=== PATIENT | female | born 1995 | race Caucasian/White ===

== ENCOUNTER 2017-03-11 13:06 | Inpatient (IN) | payer OTHER ==
[~2017-03-11] VITALS: Ht 170.2 cm; Wt 74.9 kg
--- NOTE | ~2017-03-11 | INDIVTXPLN ---
"PATIENT: ADELIA SHEIKH | | [facility] UNIT #: [id number] | [address] AGE/SEX: 21 F : [birth year] | [address] | [place] [address] ADMIT/REG DATE: 03/11/17 | ROOM: [facility] LOC: ADTC | ADTC | Individualized Treatment Plan Date: Problem Statement/Issue Identified: Client has learned to deny or stuff feelings; needs to learn to identify and process feelings in a clean/sober manner. Goal: Client will learn to identify and express feelings in a healthy, clean/sober manner. Objectives/Activities to achieve goal: 1. Client is to complete the Feelings packet and process it with counselor. Due Date:03/26/17 Complete: Incomplete: 2. Client is to write the following people a feelings letter, each separately, and process them with counselor and in family group, if able: Her father, mother, step father and step brother. Due Date:04/01/17 Complete: Incomplete: Client signature Date Counselor signature Date Outcome/Measurement of Progress Towards Goal: Counselor's signature Date "
--- NOTE | ~2017-03-11 | INDIVTXPLN ---
"PATIENT: ADELIA SHEIKH | | [facility] UNIT #: [id number] | [address] AGE/SEX: 21 F : [birth year] | [address] | [place] [address] ADMIT/REG DATE: 03/11/17 | ROOM: [facility] LOC: ADTC | ADTC | Individualized Treatment Plan Date: 04/02/17 Problem Statement/Issue Identified: Client needs to identify relapse warning signs and develop a plan to deal with them as they arise. Goal: Client will learn how to maintain her recovery. Objectives/Activities to achieve goal: 1. Client is to complete the Recovery Maintenance packet and process it with counselor. Due Date:04/04/17 Complete: Incomplete: Client signature Date Counselor signature Date Outcome/Measurement of Progress Towards Goal: Counselor's signature Date "
--- NOTE | ~2017-03-11 | CLPRLASSUM ---
PATIENT: ADELIA SHEIKH | | [facility] UNIT #: [id number] | [address] AGE/SEX: 21 F : [birth year] | [address] | [place] [address] ADMIT/REG DATE: 03/11/17 | ROOM: [facility] LOC: ADTC | ADTC | Client Problem List/Assessment Summary Date: 03/12/17 Problems identified by the client: Client decided she needs to get her life back together, so cam eto treatment on her own without any outside influences. Problems identified by significant others: Same Client's Strengths: Client identiified her strengths as: She has a big heart, she sees the best in people, has an imagination and can be very positive. Problem List: Code: T Client continues to use alcohol &/or drugs despite ongoing negative consequences. Code: T Client does not "reach-out to others for help" and instead resumes using alcohol &/or drugs. Code: T Client has learned to deny or stuff feelings; needs to learn to identify and process feelings with safe people to acquire the necessary skills to maintain custodial sobriety. Code: T Client needs to identify relapse warning signs and develop a plan to deal with them as they arise. Code: T Client needs to identify ways to improve self esteem to help maintain salvage determiner sobriety from all mood altering substances. Code Melchor: T: to be addressed during course of treatment O: problem noted, expected to resolve itself with abstinence--specific tx plan not required R: problem noted, will be referred upon discharge PRIMARY COUNSELOR: MIGUEL Saeed
--- NOTE | ~2017-03-11 | TXPLANREV ---
"PATIENT: ADELIA SHEIKH | | [facility] UNIT #: [id number] | [address] AGE/SEX: 21 F : [birth year] | [address] | [place] [address] ADMIT/REG DATE: 03/11/17 | ROOM: [facility] LOC: ADTC | ADTC | Treatment Plan/Staffing Review Date: 03/26/17 Treatment plan was reviewed and determined appropriate as written: Yes Treatment plan was reviewed and the following changes/addition/deletions are necessary: Client is to continue working on treatment plan assignments. She is working on feelings letters, and other self-worth papers/packets. She will begin working on relapse prevention soon. 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 Other pertinent issues discussed during this staffing review include: None Staff Present: Anay Dean PRIMARY COUNSELOR: Deepa See Client Signature Counselor Signature Date Time "
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
--- NOTE | ~2017-03-11 | TXPLANREV ---
"PATIENT: ADELIA SHEIKH | | [facility] UNIT #: [id number] | [address] AGE/SEX: 21 F : [birth year] | [address] | [place] [address] ADMIT/REG DATE: 03/11/17 | ROOM: [facility] LOC: ADTC | ADTC | Treatment Plan/Staffing Review Date: 04/02/17 Treatment plan was reviewed and determined appropriate as written: Yes Treatment plan was reviewed and the following changes/addition/deletions are necessary: Client is to continue working on treatment plan assignments. She is working on self-worth, and will begin working on recovery maintenance. 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 Other pertinent issues discussed during this staffing review include: None Staff Present: Chelsie Dean PRIMARY COUNSELOR: MIGUEL Saeed Client Signature Counselor Signature Date Time "
--- NOTE | ~2017-03-11 | INDIVTXPLN ---
"PATIENT: ADELIA SHEIKH | | [facility] UNIT #: [id number] | [address] AGE/SEX: 21 F : [birth year] | [address] | [place] [address] ADMIT/REG DATE: 03/11/17 | ROOM: [facility] LOC: ADTC | ADTC | Individualized Treatment Plan Date: 03/20/17 Problem Statement/Issue Identified: Client needs to identify ways to improve self esteem to help maintain care home sobriety from all mood altering substances. Goal: Client will learn how to get to know herself, which in turn, will help her gain higher self-worth. Objectives/Activities to achieve goal: 1. Client is to complete the About Me, Finish the Sentences and I'm Worthwhile, because.... papers, and process them with counselor. Due Date:03/28/17 Complete: Incomplete: 2. Client is to complete the Self-Sharp packet and process it with counselor. Due Date:03/28/17 Complete: Incomplete: 3. Client is to work on 2 pages a day, only, out of the Quiet Moments packet and process them with counselor. Due Date:Ongoing Complete: Incomplete: Client signature Date Counselor signature Date Outcome/Measurement of Progress Towards Goal: Counselor's signature Date "
--- NOTE | ~2017-03-11 | INDIVTXPLN ---
"PATIENT: ADELIA SHEIKH | | [facility] UNIT #: [id number] | [address] AGE/SEX: 21 F : [birth year] | [address] | [place] [address] ADMIT/REG DATE: 03/11/17 | [facility] | ADTC | Individualized Treatment Plan Date: 03/12/17 Problem Statement/Issue Identified: Client continues to use alcohol &/or drugs despite ongoing negative consequences, and she did not reach out to anyone prior to drinking. Goal: Client will learn to identify negative consequences of her addiction, attend AA/NA meetings, and meet women in recovery. Objectives/Activities to achieve goal: 1. Client is to complete the How to Get Started packet, process it with counselor and selected pages in group. Due Date:03/15/17 Complete: Incomplete: 2. Client is to complete Step 1, process it with counselor and selected pages in group. Due Date:03/20/17 Complete: Incomplete: 3. Client is to attend AA/NA meetings, ask for and get at least 5 names and numbers of women in recovery and share that list with counselor. Due Date:Ongoing Complete: Incomplete: Client signature Date Counselor signature Date Outcome/Measurement of Progress Towards Goal: Counselor's signature Date "
--- NOTE | ~2017-03-11 | TXPLANREV ---
"PATIENT: ADELIA SHEIKH | | [facility] UNIT #: [id number] | [address] AGE/SEX: 21 F : [birth year] | [address] | [place] [address] ADMIT/REG DATE: 03/11/17 | [facility]TC | Treatment Plan/Staffing Review Date: 03/19/17 Treatment plan was reviewed and determined appropriate as written: Yes Treatment plan was reviewed and the following changes/addition/deletions are necessary: Client is to continue working on treatment plan assignments. She is finishing up with Step 1 and will begin working on feelings letters. Discharge plans were reviewed and determined appropriate as previously documented: No Discharge plans were reviewed and determined to be as follows: Client will benefit from going to sober living, however, nothing has been decided, other than to attend 3-5 AA//NA meetings per week, and to get and call a sponsor on a regular basis. Other pertinent issues discussed during this staffing review include: None at this time. Staff Present: Chelsie Dean PRIMARY COUNSELOR: MIGUEL Saeed Client Signature Counselor Signature Date Time "
--- NOTE | 2017-03-11 15:04 | NUR ---
ADMISSION NOTE Rights/Responsibilities: Copy given and explained to client. Signed and accepted by client. Client oriented to physical lay out of the ADTC unit, given Big Book and admission packet. A Leno was assigned. Muriel Client is a 21yr old single female. Brought to tx by [facility] staff where she has been for the past 5 days. Lives in [place], [place]. DOC Alcohol, last used 03/04/17, 750L daily. Allergies: Sulfa, Amoxil, Nurse has her meds. Brother will participate in family tx. Was searched no contraband found. Initial paperwork given and guidelines gone over. Doctor has been notified.
--- NOTE | 2017-03-11 22:45 | NUR ---
Tech note: Client went to an onsite NA meeting. She was checked into her room, seen by the DR and gave her first intro. She was upset about not being able to keep her blanket, cried some in the room with tech. SE; Entering treatment
--- NOTE | 2017-03-12 04:20 | NUR ---
Bed note: Client was in bed with eyes closed and no distress at all bed checks, had door locked at first bed check and that woke client up
--- NOTE | 2017-03-12 12:44 | NUR ---
A.M. 1.5 hr res group/ratio 1:10/ Group heard a getting started and a goodbye letter to addiction. Discussed having resentment towards self, how kids are forgiving, and we oriented 3 new group members. This client was oriented to her first group. She related and said her parents were addicted and only time dad calls is when he is messed up. She said she would welcome him back if he got clean.
--- NOTE | 2017-03-12 13:30 | NUR ---
Tech Note: Client participated in light stretching for morning exercise and went for an outdoor walk in the afternoon. Client stated that she is working on, "How to Get Started in Treatment."
--- NOTE | 2017-03-12 13:39 | NUR ---
Education One Hour: Client heard a presentation on Sexually Transmitted Disease.
--- NOTE | 2017-03-12 16:06 | NUR ---
Relapse Prevention Education, 1.0 hours, Client attended and actively participated in relapse prevention education which focused on a Relapse Prevention Quiz and discussion over the answers.
--- NOTE | 2017-03-12 16:13 | NUR ---
INITIAL SESSION 1 HR: Clt was oriented to tx plans, schedules and what to expect from tx and this counselor. She stated she is actually from [place], but came her to get sober and find a job. Her drug of choice is alcohol, altho she has smoked marijuana. She came from an alcoholic home, so knows no other way. 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 She had been drinking until passing out, then waking up and starting over. She is to work on her initial paperwork.
--- NOTE | 2017-03-12 20:31 | NUR ---
education note: 1 hour lecture by counselor on" what christian are you willing to pay"
--- NOTE | 2017-03-12 23:03 | NUR ---
Tech note: Client attended the Alumni meeting, participated in guided meditation and attended an onsite AA meeting. SE; Meeting with counselor
--- NOTE | 2017-03-13 05:00 | NUR ---
Bed note: Client was in bed with eyes closed and motionless at all bed checks.
--- NOTE | 2017-03-13 09:07 | HP ---
ADMIT: 03/11/2017 RM/LOC: [facility] MR#: [id number] [address] [facility] [address] [place] [id number] ADELIA SHEIKH [address] [place] [id number] History and Physical SEX: F AGE: 21 : 1995 DATE OF SERVICE: 03/11/2017 This is for her admission to the residential care program with [facility]. CHIEF COMPLAINT: Alcohol problem drinking out of control. CLINICAL HISTORY: The patient is a 21-year-old white female, admitted to the residential care program for treatment of her alcohol use disorder. The patient readily admits that she is an alcoholic and recognizes that she needs help to quit and remain sober. The patient notes that she tried to quit on her own and was sober from September of 2016 through November of 2016, but then relapsed and has been drinking again heavily for the last 4 months. She comes to treatment after having spent the past 6 days at detox being admitted to [facility] on 03/05/2017 and transferred to the residential treatment program on 03/11/2017. As noted her drug of choice is alcohol. She first started drinking at age 15. Her drinking escalated when she was 16-1/2 to 17 years of age, and the patient notes that she has been drinking daily for the last 3 years. Typically drinking whiskey or other hard liquor. Drinking at least a minimum of 750 mL of whiskey per day. Drinking to the point that she has blackouts. Drinking to the point that she often times will pass out or fall asleep. She also notes that by mid morning, she usually has to start drinking because she starts to get tremulous and has signs of early alcohol withdrawal. So, she drinks to get rid of the shakes. She notes that she prefers alcohol is her drug of choice, but will occasionally smoke marijuana. Typically, she does not seek out marijuana, but if she has been drinking and pot is there, she will take a couple hits off a bowl. Usually, she will smoke pot at least once a week, but notes that she does not typically smoke pot unless she has been drinking. She denies any other regular drug use. She notes she has experimented with cocaine on 2 occasions, snorting a line once again while intoxicated and was available at parties. Notes, she really did not care that much for cocaine and as noted has only used it twice. She denies any abuse of prescription drugs. She has been on medications for ADD since she was 6 years of age. She notes that she has never abused her ADD medications. She comes to treatment requesting help on a voluntary basis wanting to get sober and try to get her life back on track. She is actually from [place], [place] but has been staying with friends in [place] recently trying to get away from the environment that was leading her to drinking so heavily. PAST MEDICAL HISTORY: Prior hospitalizations, the patient had 2 psychiatric admissions in the last 5 months. She is admitted to a Behavioral Service Unit in [place] after a suicide attempt in November of 2016. She was hospitalized again in December of 2016. Each of these times, she was in the psychiatric facility for 1 week following suicide attempts. She stops taking Prozac and has had no further suicidal ideation. She had been placed on Prozac in September and started having suicidal thoughts after being started on antidepressant medication. She has had no other recent hospitalizations. Her only previous surgical procedure was having her wisdom teeth extracted in 2009. ADMIT: 03/11/2017 RM/LOC: [facility] MR#: [id number] [address] [address] [address] [address] [address] History and Physical SEX: F AGE: 21 : 1995 CURRENT MEDICATIONS: Her medications include: 1. control pill for contraception. 2. She also is on Concerta 54 mg once daily. 3. She takes Atarax 25 mg occasionally as needed for anxiety. ALLERGIES: SHE IS ALLERGIC TO AMOXICILLIN AND SULFA. MEDICAL ILLNESSES: The patient notes history of ADHD, has been on medications for the last 15 years for her ADHD. She notes that she really cannot function without the medication. She has trouble concentrating, unable to stay on task. Has difficulty with reading comprehension and retaining information if she does not take her ADD med. COMPUTER MECHANIC HISTORY: She is a nulligravida. Currently, on the control pill. REVIEW OF SYSTEMS: A 12-point review of systems is otherwise noted to be negative with no significant cardiac, pulmonary, GI, , musculoskeletal, or neurologic problems. The patient has struggled with depression and past suicidal ideation, but denies any suicidal thoughts at this time. I do note that she is a smoker. Typically, smoking less than half a pack a day. SOCIAL HISTORY: She is single. She has currently been staying with friends in [place]. The patient notes she graduated high school and has taken a semester of college. She has no children. Her family lives in [place], and she plans on returning to [place] upon completion of treatment. FAMILY HISTORY: She notes that both of her parents were alcoholics. Her mother has been sober for a number of years. She notes that she has an older brother and a younger sister. Her older brother has also struggled with alcoholism and drug abuse. She notes there is a strong history of alcoholism on both sides of her family in addition to both of her parents. PHYSICAL EXAMINATION: VITAL SIGNS: Temp is 96.7, pulse is 74, respirations 20, blood pressure is 135/86, height 5 feet 7 inches, and weight is 165 pounds. GENERAL: The patient is a 21-year-old, white female, appears her stated age. She is in no acute distress. HEENT: Entirely unremarkable. Nose and throat noninflamed. NECK: Supple. Thyroid not enlarged. No cervical adenopathy. LUNGS: Noted to be clear today. HEART: Regular rhythm without murmur. ABDOMEN: Soft and nontender. No masses. No organomegaly. Bowel sounds normoactive. BREASTS AND PELVIC: Exams not performed EXTREMITIES: Normal to gross exam. No clubbing or cyanosis. No peripheral edema. Full range of motion and mobility in all extremities. NEUROLOGICAL: She is intact with no focal deficit. Balance and gait are normal. Cranial nerves II through XII are grossly intact. ADMIT: 03/11/2017 RM/LOC: [facility] MR#: [id number] [address] [id number] [address] History and Physical SEX: F AGE: 21 : 1995 MENTAL STATUS EXAMINATION: She is pleasant and cooperative. Affect is appropriate. She has no bizarre ideation. No delusions. No hallucinations. She admits to depression and admits to feelings of loneliness, depression, and hopelessness, but denies any suicidal ideas or thoughts at this time. She is oriented x3. She is of average intelligence. Her insight is limited. Judgment is guarded. ASSESSMENT AT THE TIME OF ADMISSION: 1. Alcohol use disorder, severe. 2. Cannabis use disorder, moderate. 3. Attention-deficit hyperactivity disorder. 4. Tobacco use disorder. 5. Major depressive disorder, recurrent. 6. Chemical-induced mood disorder. PLAN: Is to admit the patient to the residential care program with a tentative discharge date of 04/08/2017. We will need to discuss with the staff and program directors regarding whether or not to continue her current stimulant medication for her ADHD while she is in treatment. Scott Brandt MD/ pavan JOB #: [id number] CC: Scott Brandt, Attending Physician NO FAMILY PHYSICIAN, Family Physician
--- NOTE | 2017-03-13 10:43 | NUR ---
Hermilo notes: Client is working on Getting started and mtg with chayito
--- NOTE | 2017-03-13 12:38 | NUR ---
Education note: Client had education by [facility]
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
--- NOTE | 2017-03-13 17:22 | NUR ---
SPIRITUAL EDUCATION 1 HR. Todays topics were orienting newcomers, and taking a look at Pradip George's 5 SECRETS TO SUCCESS which include a look at the miracles of the human body as blessings.
--- NOTE | 2017-03-13 20:59 | NUR ---
education: 1 hour video on unresolved anger and group discussion with counselor
--- NOTE | 2017-03-13 22:16 | NUR ---
Tech note: Client worked on beaded project and attended an onsite NA meeting. SE; NA meeting
--- NOTE | 2017-03-14 04:06 | NUR ---
Bed note: Client was in bed with eyes closed and no distress at all bed checks.
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
--- NOTE | 2017-03-14 10:51 | NUR ---
Tech Note: Client participated in Spiritual Enrichment. Client stated that she is working on Step One.
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
--- NOTE | 2017-03-14 13:41 | NUR ---
Education 1 Hour: Client heard a presentation from a member of the recovery community who shared his experience, strength and hope.
--- NOTE | 2017-03-14 16:19 | NUR ---
step education 1 hr/ Focus was on step 2, handed out some questions they completed on paper and then opened it up for discussion. This client started getting emotional when a peer shared about a cousin who had a problem with a pregnacy and she seemed to know a lot so wonder if she went through similar situation.
--- NOTE | 2017-03-14 23:47 | NUR ---
Tech Note: Client attended Guided Meditation and A.A.Meeting. SE: Speaker
--- NOTE | 2017-03-15 04:25 | NUR ---
Eduction: 1 Hour. Client attended "Unresolved Anger" video & discussion presented by staff.
--- NOTE | 2017-03-15 08:07 | NUR ---
FAMILY CONTACT: The number clt provided for her step brother is not a working number.
--- NOTE | 2017-03-15 11:53 | NUR ---
Group 1.5 Hr Ratio 1:9/Topics today were two getting started packets, forgiveness and dealing with bad childhoods. Client shared her GS packet ad did ok but was quiet after that. Self esteem is a struggle for this client she said.
--- NOTE | 2017-03-15 13:00 | NUR ---
PEER REVIEWS 1.5 HRS: Clt participated in peer review process and was able to give open and honest feedback to those receiving a review.
--- NOTE | 2017-03-15 16:23 | NUR ---
Tech Note: Client participated in group walk for exercise and watched "Recovery Issues Part 3" for afternoon video. Client is working on Step 1.
--- NOTE | 2017-03-15 22:49 | NUR ---
TECH NOTE: Client participated in reading guidelines and watched tv/movies. SE: seeing ducks
--- NOTE | 2017-03-16 04:11 | NUR ---
Bed Note: Clt lay motionless in bed with eyes closed showing no distress at all bed checks.
--- NOTE | 2017-03-16 16:04 | NUR ---
Tech Note: Client attended NA Panel and is working on Step 1. She had a visitor.
--- NOTE | 2017-03-16 20:25 | NUR ---
Tech note: Clt played a game for recreation and attended offsite AA mtg. Watched tv and played cards. SE was seeing brother
--- NOTE | 2017-03-17 04:38 | NUR ---
Bed Note: Clt lay motionless in bed with eyes closed showing no distress at all bed checks.
--- NOTE | 2017-03-17 15:52 | NUR ---
Tech Note: Client participated in Big Book Study. Client stated that she is working on Step One and writing a letter to herself.
--- NOTE | 2017-03-17 22:47 | NUR ---
Tech Note: Clt attended AA panel, played game with male peer and watched tv. SE was nap
--- NOTE | 2017-03-18 04:40 | NUR ---
Bed Note: Clt lay motionless in bed with eyes closed showing no distress at all bed checks.
--- NOTE | 2017-03-18 10:16 | NUR ---
Tech notes: Client is working on Step 1 and Letter to self
--- NOTE | 2017-03-18 12:43 | NUR ---
Group 1.5 hr/10:1 Clients heard peers share packets, this client was attentive.
--- NOTE | 2017-03-18 13:31 | NUR ---
Education: Client attended education by [employer] on Infection prevention.
--- NOTE | 2017-03-18 16:00 | NUR ---
Recovery 101 1 hr/ Clients all were asked to share what they worked on in treatment or past treatments that really helped them and/or their experience with working an AA/NA program of recovery-what went well. This client was attentive. She said it is her first time she wanted treatment and is learning the root of why she needs to drink/use.
--- NOTE | 2017-03-18 18:12 | NUR ---
Education: 1 Hour. Client attended "Adult Children of Alcoholics" lecture presented by staff.
--- NOTE | 2017-03-18 23:33 | NUR ---
tech note: Client played a game for recreation & attended onsite NA meeting. Client was seen sitting with male peer in the NA meeting-they didn't have anyone else sitting very close to them. SE: NA meeting.
--- NOTE | 2017-03-19 04:32 | NUR ---
BED NOTE: Client was in bed, motionless with eyes closed all three bed checks.
--- NOTE | 2017-03-19 11:38 | NUR ---
A.M. 1.5 hr res group/ratio 1:10/ Assignments shared were a how to get started and a letter to self. Discussion focused on resenting self, forgivness, feeling afraid and out of place and believing in self. This client participated and shared her letter to herself and said she knows she needs to learn how to love herself and is working on this.
--- NOTE | 2017-03-19 16:00 | NUR ---
Relapse Prevention, 1.0 hours, Client attended and actively participated in relapse prevention education which focused on internal and external triggers.
--- NOTE | 2017-03-19 16:37 | NUR ---
Tech Note: Client participated in Nutritional Services presentation and is working on Step 1 and Self Bon Homme.
--- NOTE | 2017-03-19 22:42 | NUR ---
Education: 1 hour lecture given by counselor on co-dependency
--- NOTE | 2017-03-19 22:53 | NUR ---
Tech note: clients played catchphrase for rec, participated in guided meditation and attended AA meeting SE:all day
--- NOTE | 2017-03-20 04:37 | NUR ---
bed note: client was in bed with eyes closed and motionless at all bed checks.
--- NOTE | 2017-03-20 09:54 | NUR ---
Tech notes: Client is working on Quiet moments and mtg with chayito
--- NOTE | 2017-03-20 11:30 | NUR ---
GROUP 1.5 HRS. 1:12 Clients participated in orienting new peer to purpose and rules of group. Discussion included healthy coping skills to deal with stress and feelings. Peer processed from his step 1 assignment identifying how he betrayed his values in his addiction. This client offered appropriate feedback. Peer advised that he has noticed this client paying attention to the scars on her wrist and inquired about feelings which she identified as sad. She also shared about relapse being self-sabotage and not believing that she deserves good things.
--- NOTE | 2017-03-20 13:15 | NUR ---
Education note: Client attended educational speaker Wil Calderon
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
--- NOTE | 2017-03-20 18:18 | NUR ---
Education: 1 Hour. Client attended "Boudaries" lecture given by staff.
--- NOTE | 2017-03-20 22:57 | NUR ---
Tech Note: Client played a game for rec, and attended The on unit N.A.Meeting. SE: Co Chairing N.A.Meeting
--- NOTE | 2017-03-21 04:30 | NUR ---
Bed Note: Client was in bed with eyes closed and motionless at all bed checks.
--- NOTE | 2017-03-21 12:46 | NUR ---
Group 1.5 Hr Ratio 1:9/Topics today were a collage, two step ones, a getting startred and feelings letters. Client shared how he could relate to what clients were sharing from assignments and issues. Client also shared her step one and did a good job looking at her lack of self esteem and how she needs to learn to set boundaries.
--- NOTE | 2017-03-21 15:49 | NUR ---
step education 1 hr/ Focus was on step 3 of the 12 steps Made a decision to turn our will and lives over to God. Each person were given questions to answer on paper and then to share and discuss. This client participated.
--- NOTE | 2017-03-21 18:16 | NUR ---
Education 1HR: Clt watched video called "Predator part 1" by Simeon Savage with staff present.
--- NOTE | 2017-03-21 23:10 | NUR ---
Tech Note: Client took a walk for rec and attended the A.A.Meeting. SE: A.A.Meeting
--- NOTE | 2017-03-21 23:23 | NUR ---
1:00 pm. Education Note: Client watched video "Inside the Addictive Personality"
--- NOTE | 2017-03-22 04:09 | NUR ---
Bed Note: Client was in bed and motionless at all bed checks.
--- NOTE | 2017-03-22 11:30 | NUR ---
Group 1.5 hr/ 11:1 Clients all involved in discussions about addiction and recovery. THis client was very involved and gave good feedback, related well.
--- NOTE | 2017-03-22 14:40 | NUR ---
PEER REVIEWS 1.5 HRS: Clt participated in peer review process and was able to give open and honest feedback to those receiving a review.
--- NOTE | 2017-03-22 15:41 | NUR ---
Tech Note: Client participated in group walk and watched "Marijuana" by Simeon Savage. Assignment being worked on is Feelings Letters.
--- NOTE | 2017-03-22 23:23 | NUR ---
Tech note: Client played games and watched movies. Client walked to an offsite AA meeting.
--- NOTE | 2017-03-23 04:02 | NUR ---
Bed note: Client was in bed with eyes closed and no distress at all bed checks
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
--- NOTE | 2017-03-23 16:52 | NUR ---
Tech Note: Client went to A.A.Meeting at [address]. Client went on a walk Client is working on FL's and had appointment with counselor
--- NOTE | 2017-03-23 22:06 | NUR ---
Tech note: Client's were just starting to grill around 6pm so we did not have rec this evening. Client walked to an offsite AA meeting, played games and watched movies. SE; Phone
--- NOTE | 2017-03-24 04:45 | NUR ---
tech note: client was motionless in no distress at all bed checks.
--- NOTE | 2017-03-24 17:37 | NUR ---
Tech Note: Client participated in Big Book study. Client attended evangelical. Client stated that she is working on,"Feelings" and writing feelings letters.
--- NOTE | 2017-03-24 23:29 | NUR ---
tech note: Client participated in community clean. Client watched tv. SE: visit with mom.
--- NOTE | 2017-03-25 04:24 | NUR ---
tech note: client was motionless in no distress at all bed checks.
--- NOTE | 2017-03-25 11:30 | NUR ---
Experiential Group 1.5 hr/ Clients all participated in looking at family dynamics and feelings through sculpturing and participated with feedback, relating and/or role-playing. This client was involved in role playing and feedback.
--- NOTE | 2017-03-25 16:00 | NUR ---
RECOVERY 101 1 HR/ Clients all filled out 30 question sheet on consequences of their use, looking at every chemical they have used to help see powerlessness and not minimize any chemicals they have abused. Clients learned about early stages and definition of addiction. This client was involved.
--- NOTE | 2017-03-25 17:48 | NUR ---
Tech Note: Client went for an outdoor walk in the afternoon. Client stated that he is working on, "Feelings" and writing feelings letters.
--- NOTE | 2017-03-25 20:47 | NUR ---
Education 1 HR: Clt listened to lecture given by counselor on communication.
--- NOTE | 2017-03-25 23:12 | NUR ---
Client played a game for rec and attended on site N.A.Meeting SE: seeing brother at the N.A.Meeting
--- NOTE | 2017-03-26 04:58 | NUR ---
Bed Note: Client was in bed and motionless at all bed checks
--- NOTE | 2017-03-26 12:28 | NUR ---
A.M. 1.5 hr group/ Assignments shared were step 1, feelings letters, timeline to music, and a group member asking for help on how to forgive self. This client was attentive and participated.
--- NOTE | 2017-03-26 15:17 | NUR ---
Tech Note: Client joined group for afternoon walk, listened to speaker from [facility] and is working on Feelings Letters.
--- NOTE | 2017-03-26 16:04 | NUR ---
Tech Note: Client attended Relapse Prevention education with Deepa.
--- NOTE | 2017-03-26 19:55 | NUR ---
Education: 1 hour lecture on STD/AID/HIV [place] by [facility].
--- NOTE | 2017-03-26 22:35 | NUR ---
Tech note : Client worked on Tintri crafts and get well cards. Client participated in guided meditation and went to an onsite AA meeting.
--- NOTE | 2017-03-27 04:16 | NUR ---
Bed note: Client was in bed with eyes closed and no distress at all bed checks
--- NOTE | 2017-03-27 11:14 | NUR ---
Tech Note: Client is working on Feelings Letters.
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
--- NOTE | 2017-03-27 13:19 | NUR ---
Tech Note: Client walked in the hallways for afternoon exercise.
--- NOTE | 2017-03-27 13:23 | NUR ---
Education One Hour: Client heard from members of the recovery community, who shared their experience, strength and hope.
--- NOTE | 2017-03-27 17:29 | NUR ---
SPIRITUAL EDUCATION 1 HR. Topics today were orienting newcomers and then broke into groups and did presentations on their sections from TOWARDS SPIRITUALITY.
--- NOTE | 2017-03-27 18:47 | NUR ---
Education: 1 hour lecture given by counselor on "Disease concept".
--- NOTE | 2017-03-27 22:30 | NUR ---
Tech note: Client played catch phrase for rec and attended an onsite NA meeting. SE: Feelings letter
--- NOTE | 2017-03-28 05:00 | NUR ---
Bed note: Client was in bed with eyes closed and no distress at all bed checks.
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
--- NOTE | 2017-03-28 10:45 | NUR ---
Tech Note; Client participated in light stretching for morning exercise. Client stated that she is working on writing feelings letters.
--- NOTE | 2017-03-28 12:36 | NUR ---
Group 1.5 Hr Ratio 1:11/Topics today were feelings letters, a good bye letter to addiction and a couple getting started packets. Client shared a feelings letter to her ex and mom. Both were fairly well done but it was difficult to tell what she learned from a bad relationship.
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
--- NOTE | 2017-03-28 16:21 | NUR ---
Education 1 Hour: Client heard from two members of the recovery community, who shared their experience strength and hope.
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
--- NOTE | 2017-03-28 20:24 | NUR ---
Education: 1 Hour. Client attended Mike Handy "Unhealthy Families" video.
--- NOTE | 2017-03-28 23:00 | NUR ---
Client went on a walk for rec, participated in guided meditation, and attended the on unit A.A.Meeting. SE: Family
--- NOTE | 2017-03-29 05:36 | NUR ---
tech note: client was motionless in no distress at all bed checks.
--- NOTE | 2017-03-29 11:34 | NUR ---
Group 1.5 Hr Ratio 1:11/Topics today were two Getting started packets, feelings letters and a letter to self. Client shared positive feedback with peers sharing from assirnments and issues.
--- NOTE | 2017-03-29 14:48 | NUR ---
Tech Note: Client joined our group walk for exercise. Watched video titled "Sound of Silence" and is working on Feelings Letters.
--- NOTE | 2017-03-29 15:43 | NUR ---
PEER REVIEWS 1.25 HRS: Clt participated in peer reviews and took a risk to give open and honest feedback to those receiving a review.
--- NOTE | 2017-03-29 20:30 | NUR ---
TECH NOTE: Client participated in reading of guidelines, watched TV/movies SE: Lunch
--- NOTE | 2017-03-30 04:31 | NUR ---
BED NOTE: Client was in bed, motionless with eyes closed all bed checks.
--- NOTE | 2017-03-30 16:19 | NUR ---
Tech Note: Client is working on Feelings Letters.
--- NOTE | 2017-03-30 20:24 | NUR ---
Tech note: Clt played a game for recreation and attended offsite AA mtg. Clt played cards, watched movie and used phone. SE was movie
--- NOTE | 2017-03-31 04:25 | NUR ---
BED NOTE: Client was in bed motionless with eyes closed all three bed checks.
--- NOTE | 2017-03-31 15:52 | NUR ---
Tech Note: Client participated in Big Book study. Client stated that she is working on writing feelings letters. Client received a visitor.
--- NOTE | 2017-03-31 23:04 | NUR ---
Tech Note: Client attended the A.A.Panel with Huy Barba SE: Big Book Study and A.A.Panel
--- NOTE | 2017-04-01 04:38 | NUR ---
Bed Note: Client was laying in bed and motionless at all bed checks.
--- NOTE | 2017-04-01 09:49 | NUR ---
Tech note: Client is working on Fl's.
--- NOTE | 2017-04-01 12:55 | NUR ---
Education Note: Clients attended speaker for education Kit J.
--- NOTE | 2017-04-01 16:04 | NUR ---
PEER REVIEWS 1.25 HRS: Clt participated in peer reviews and took a risk to give open and honest feedback to those receiving a review. Client had a peer reivew and this is some of what she heard; has self-esteem issues, has low self-worth, doesn't want to hurt others so doesn't let others know when she hurts, likes to inflict pain on herself, does not want to face her past, has trust issues and holds resentments.
--- NOTE | 2017-04-01 17:00 | NUR ---
FAMILY EDUCATION 3 HRS. Client was accompanied by her brother. They took part in the discussion on the family roles, codependency and detachment.
--- NOTE | 2017-04-01 18:19 | NUR ---
Education: 1 Hour. Client attended "Feelings" lecture presented by staff.
--- NOTE | 2017-04-01 21:00 | NUR ---
FAMILY GROUP 8:1/ HR: Client, attending family members and peers heard several peers and their loved ons process FEELINGS LETTERS. Much of the focus was on the drastic changes that take place in the individual's personality when they injest chemicals. Much of the emphasis became the need to rebuild trust which will take time. This client attended with her older step-brother and was mostly quiet, but attentive, through out despite prodding for feedback. She did finally relate to another male peer who had processed his letter with his mom and identified that he often ignored her repeated calls because he didn't want to be bothered. Client said she often did the same to her own mom and feels really ashamed of that behavior now as she knows her mom was only worried and concerned. Client announced in the last 20 minutes that she had written a letter to her step-brother which she then processed. The letter was brief, but appeared sincere, thanking him for supporting her and always being willing to listen. Step-brother shared about his own addiction (heroin?) and also reported that he has been clean and sober for a number of years. SD reported that this client was equally supportive of him when he was struggling. They referred to his dad/her step-dad (?) as an alcoholic/daily drinker who denies that there is a problem.
--- NOTE | 2017-04-01 23:17 | NUR ---
Tech note: client attended Family Session. Client thanked her peers for their support and honesty toward her. SE: Family.
--- NOTE | 2017-04-02 04:46 | NUR ---
tech note: client was motionless in no distress at all bed checks.
--- NOTE | 2017-04-02 12:55 | NUR ---
GROUP 1.5 HRS. 1:11 This client was confronted at the beginning of group as she was working on her assignment. She stated she thought everyone was still signing in but that had been completed and peers had started to share feelings and issues while client proceeded to write. Group discussion included cravings and grief of old lifestyle as well as feelings letters/effects on kids and betraying values. Client did not share until prompted. She shared that she betrayed values by cheating in relationships and she would not do that when sober. She owned that she is very impulsive.
--- NOTE | 2017-04-02 15:44 | NUR ---
Relapse Prevention, 1.0 hours, Client attended and actively participated in relapse prevention education which focused on compulsive behaviors and relapse.
--- NOTE | 2017-04-02 16:10 | NUR ---
Tech Note: Client watched Part 2 of Predator by Simeon Savage and had Relapse Prevention for 3:00 education. Assignment being worked on: Quiet Moments.
--- NOTE | 2017-04-02 16:23 | NUR ---
Education Note: Client attended Relapse Prevention presented by counselor Chelsie.
--- NOTE | 2017-04-02 20:18 | NUR ---
Education: 1 hour lecture given by counselor on relapse.
--- NOTE | 2017-04-02 20:26 | NUR ---
tech note: Client went for walk for rec, participated in guided meditation and attended AA meeting
--- NOTE | 2017-04-02 23:35 | NUR ---
Tech Note: Client went on a walk for rec and attended the on unit A.A.Meeting. Client participated in Guided Meditation at 1930. SE: Elieser
--- NOTE | 2017-04-03 04:56 | NUR ---
Bed note: client was in bed with eyes closed and no distress at all bed checks.
--- NOTE | 2017-04-03 10:20 | NUR ---
Tech notes: Client is working on Fl's
--- NOTE | 2017-04-03 11:30 | NUR ---
BIG GROUP 4:21 Group was brought together to discuss issues of old behaviors, treatment relationships and other violations of guidlines that are being kept secret. All were encouraged to look at the difficulty they have confronting with assertiveness, rather than passive/aggressive. This client offered some appropriate feedback .
--- NOTE | 2017-04-03 13:48 | NUR ---
Educational note: Client watched a video for education.
--- NOTE | 2017-04-03 17:16 | NUR ---
SPIRITUaL EDUCATION 1 HR. Clients were oriented to the group and learned difference between spirituality and jain. We addressed GRATITUDE today with discussion, worksheet and activity.
--- NOTE | 2017-04-03 18:23 | NUR ---
Education: 1 Hour. Client attended "Self Esteem" lecture presented by staff.
--- NOTE | 2017-04-03 23:23 | NUR ---
tech note: client went on a walk for recreation & attended the onsite NA meeting. Client was complimented by peers for the progress she has made in treatment. SE: walk.
--- NOTE | 2017-04-04 05:11 | NUR ---
Bed Note: Clt lay motionless in bed with eyes closed showing no distress at all bed checks.
--- NOTE | 2017-04-04 11:17 | NUR ---
Tech Note: Client participated in Spiritual Enrichment.
--- NOTE | 2017-04-04 11:30 | NUR ---
AM GRP 1.5 HRS, Ratio 1:11/ Clt participated in grp discussion and stated she has some fear of leaving but has plans of doing good things w/ her life.
--- NOTE | 2017-04-04 16:17 | NUR ---
FINAL SESSION 1 HR: Clt shared that the most important things she's learned in tx is to be open and honest, and to talk about things. SHe was asked why she hadn't talked about her eating disorder. She reported she is embarassed about it. SHe heard she is in dire need of working on her self-worth, so her body image isn't as bad as she tells herself. She was given info totake home. She did the survey, we completed her continued care plan and she was given a coin and completed thru tx.
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
--- NOTE | 2017-04-04 18:59 | NUR ---
DISCHARGE NOTE Client completed treatment and left the facility taking all personal belongings with her. Discharge instructions were reviewed and a signed copy was provided to the client.
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
== END 2017-04-04 16:44 | disposition home or self-care (01) | DRG 895 ==
LOC: ADTC 13:06
PROVIDERS: ADMIT Family Medicine
PROC: HZ34ZZZ Individual Counseling for Substance Abuse Treatment, Interpersonal (ICD-10-PCS; principal; 2017-03-11)
PROC: HZ63ZZZ Family Counseling for Substance Abuse Treatment (ICD-10-PCS; principal; 2017-03-11)
PROC: HZ43ZZZ Group Counseling for Substance Abuse Treatment, 12-Step (ICD-10-PCS; principal; 2017-03-11)
DX: F10.20 Alcohol dependence, uncomplicated (principal); F33.9 Major depressive disorder, recurrent, unspecified; F12.20 Cannabis dependence, uncomplicated; F17.210 Nicotine dependence, cigarettes, uncomplicated; F90.9 Attention-deficit hyperactivity disorder, unspecified type; F41.9 Anxiety disorder, unspecified; F19.24 Other psychoactive substance dependence with psychoactive substance-induced mood disorder; Z63.72 Alcoholism and drug addiction in family; Z91.5 Personal history of self-harm